=== PATIENT | female | born 1945 | race Caucasian/White ===

== ENCOUNTER → 2017-05-29 | Outpatient (CLI) | payer OTHER, MEDICAID | LOC: CIMAGING 10:15 | PROVIDERS: ATTEND Family Medicine | DX: Z12.31 Encounter for screening mammogram for malignant neoplasm of breast (principal) | CPT/HCPCS: G0202 ==

== ENCOUNTER 2018-01-04 12:26 | Emergency (ER) | payer OTHER, MEDICAID ==
--- NOTE | 2018-01-04 15:39 | EDPHY ---
H & P Time Seen by Provider: 01/04/18 12:43 HPI/ROS: CHIEF COMPLAINT: Finger laceration History by patient HISTORY OF PRESENT ILLNESS: 72-year-old woman left hand dominant presents with laceration to her right index finger which she sustained while trying to cut a but and squash with a sharp knife. She also has a small stab wound to right thenar eminence. Her last tetanus shot was within 10 years. She denies any other pain or injury. Complains of some numbness distal to the laceration. REVIEW OF SYSTEMS: As in HPI, and all other systems reviewed and are negative Smoking Status: Heavy smoker Physical Exam: General Appearance: Alert and no distress. Head: Normocephalic, atraumatic Eyes: Pupils equal and round no injection. Extraocular movements are intact. Musculoskeletal: Neck is supple and nontender. Extremities: Right index finger with 1 0.5 cm laceration over distal volar surface just distal to D IP joint, full flexion and PIP joint against resistance , distal cap refill less than 2 sec, 2 point discrimination intact distally but subjective numbness in area 1 cm distal and proximal to wound self. Skin: No rashes or lesions except as described above. Constitutional: Initial Vital Signs Temperature (C) 36.5 C 01/04/18 12:42 Heart Rate 91 01/04/18 12:42 Respiratory Rate 16 01/04/18 12:42 Blood Pressure 152/83 H 01/04/18 12:42 O2 Sat (%) 93 01/04/18 12:42 O2 Delivery Mode Room Air Allergies/Adverse Reactions: No Known Allergies Allergy (Verified 01/04/18 12:41) Home Medications: Medication Instructions Recorded Flexeril 12/21/15 Omeprazole 12/21/15 Oxycodone HCl 12/21/15 Sertraline HCl 12/21/15 Chlorthalidone [Chlorthalidone 25 01/04/18 mg (*)] MDM/Departure - MDM Procedures: Procedure: Laceration repair. Verbal consent was obtained from the patient. The 1.5 cm laceration on the right index finger was anesthetized in the usual fashion with 0.25% Marcaine ring block. The wound was irrigated, draped and explored to its base with a gloved finger. There were no deep structures involved. No tendon injury was identified. Initially patient had poor response to ring block and a 2nd block with 0.25% Marcaine was performed. At the time of wound closure, more than 30 min after 2nd ring block patient was extremely sensitive and affect appear to be hyperesthetic at the wound edges when touched with the forceps or needle. The wound was repaired with 5 times 5 0 Ethilon interrupted sutures. The wound repair was uncomplicated. The procedure was performed by myself. - Depart Disposition: Home, Routine, Self-Care Clinical Impression: Laceration Condition: Good Instructions: Laceration (ED) Additional Instructions: You were seen by Dr. Annabelle King today. Keep your dressing on for the next 24 hr. After that you may remove it and wash the wound regularly with soap and water, cover it with ointment such as Aquaphor and a bandage until the sutures come out. Do not submerge the wound such as in a swimming pool. Please have the sutures removed in 10-14 days. Watch for signs and symptoms of infection including but not limited to pus from the wound, increased pain or redness, unexplained fever. Return for any worsening or new concerns. Referrals: [facility],. [Primary Care Provider] - As per Instructions
[2018-01-04 16:15] VITALS: BP 122/78
== END 2018-01-04 15:52 | disposition home or self-care (01) ==
LOC: CED 12:26
PROC: 0HQFXZZ Repair Right Hand Skin, External Approach (ICD-10-PCS; principal; 2018-01-04)
DX: S61.210A Laceration without foreign body of right index finger without damage to nail, initial encounter (principal); F17.200 Nicotine dependence, unspecified, uncomplicated; W26.0XXA Contact with knife, initial encounter

== ENCOUNTER → 2018-03-07 | Outpatient (CLI) | payer OTHER, MEDICAID | LOC: CIMAGING 10:11 | PROVIDERS: ATTEND Family Medicine | DX: J43.2 Centrilobular emphysema (principal); J84.10 Pulmonary fibrosis, unspecified; R91.1 Solitary pulmonary nodule; F17.200 Nicotine dependence, unspecified, uncomplicated; I25.10 Atherosclerotic heart disease of native coronary artery without angina pectoris; N28.1 Cyst of kidney, acquired | CPT/HCPCS: 71250-PO ==

== ENCOUNTER → 2018-06-28 | Outpatient (CLI) | payer OTHER, MEDICAID | LOC: CIMAGING 10:09 | PROVIDERS: ATTEND Family Medicine | DX: Z12.31 Encounter for screening mammogram for malignant neoplasm of breast (principal) ==